=== PATIENT | male | born 1980 | race African-American/Black ===

== ENCOUNTER 2022-12-20 03:10 | Emergency (ER) | payer OTHER, SELFPAY ==
--- NOTE | ~2022-12-20 | CT_ITS ---
EXAMINATION: CT abdomen pelvis w con INDICATION: Epigastric pain TECHNIQUE: Computed tomographic images of the abdomen and pelvis were obtained after the administrati on of 100 cc of Omnipaque 350 intravenous contrast. The dose-length product (DLP) was 552.89 mGy-cm. Automated exposure control and iterative reconstruction technique were employed. COMPARISON: None available FINDINGS: Minimal dependent atelectasis is present in the lung bases. The heart size is normal. The l iver is diffusely low in attenuation when compared with the spleen, consistent with hepatic steatosis . The spleen, gallbladder, and adrenal glands are normal. There is mild inflammatory change near the tail of the pancreas. There is a 1.3 cm cyst of the right kidney. The left kidney is unremarkable. No pathologically enlarged abdominal or pelvic lymph nodes are identified. No free intraperitoneal gas or evidence of bowel obstruction. The appendix is normal. IMPRESSION: 1. Mild acute pancreatitis, likely interstitial edematous. This finding is discrepant from the provid ed overnight preliminary reading and was discussed with Dr. Valentin in the Emergency Department at 074 5 hours on 12/20/2022. Reviewed, dictated and finalized at location A. IMPRESSION: 1. Mild acute pancreatitis, likely interstitial edematous. This finding is disc repant from the provided overnight preliminary reading and was discussed with Navin Valentin in the Emergency Department at 0745 hours on 12/20/2022.
--- NOTE | 2022-12-20 03:15 | ECG_ITS ---
Measurements Intervals [place] Rate: 73 P: 34 NH: 165 QRS: 55 QRSD: 76 T: 14 QT: 380 QTc: 421 Interpretive Statements SINUS RHYTHM NO PREVIOUS ECG AVAILABLE FOR COMPARISON Electronically Signed On 12-20-2022 13:52:21 CDT by Binta Joseph M.D.
[2022-12-20 03:20] VITALS: BP 157/116; PULSE 87; RESP 18; TEMP 36.3; O2SAT 100
[2022-12-20 03:28] VITALS: BP 145/108; PULSE 72; RESP 12; TEMP 36.6; O2SAT 99
--- NOTE | 2022-12-20 03:32 | ED.GENADULT ---
HPI - General Adult General Chief complaint: Abdominal Pain Stated complaint: Abdominal pain Time Seen by Provider: 12/20/22 03:25 History of Present Illness HPI narrative: Patient 42-year-old gentleman who presents the emergency department with chief complaint of epigastric pain. The patient reports he started having pain yesterday reports its in the epigastric region reports it does radiate to the back some patient states that it is an aching-like sensation the patient does not report chest pain reports that he did drink fairly heavily on Saturday patient reports no prior abdominal issues the patient reports he has history of hypertension and asthma. Related Data Allergies Allergy/AdvReac Type Severity Reaction Status Date / Time No Known Allergies Allergy Verified 12/20/22 03:12 Review of Systems Review of Systems: A 10 system review of systems was completed on the patient and is negative except for what is stated in the HPI. Nursing and ancillary documentation was reviewed. Exam Narrative: GENERAL: Well-appearing, well-nourished, and in no acute distress. HEAD: Normocephalic, atraumatic. EYES: PERRLA and EOMI. ENT: Nares clear, no rhinorrhea or epistaxis. Mucous membranes moist. NECK: Supple. CHEST: Clear to auscultation. No respiratory distress. HEART: Regular rate and rhythm. No murmur heard. Normal peripheral pulses. ABDOMEN: Soft, nontender, nondistended, normal active bowel sounds. EXTREMITIES: Normal range of motion. No edema. SKIN: Warm, dry, no rash. NEURO: No focal deficits. Alert and oriented x3. PSYCH: Normal mood and affect. Course Vital Signs Vital signs: Vital Signs Temperature 36.3 C L 12/20/22 03:20 Pulse Rate 87 12/20/22 03:20 Respiratory Rate 18 12/20/22 03:20 Blood Pressure 157/116 H 12/20/22 03:20 Pulse Oximetry 100 12/20/22 03:20 Oxygen Delivery Room Air 12/20/22 03:20 Temperature 36.6 C 12/20/22 03:28 Pulse Rate 75 12/20/22 04:51 Respiratory Rate 14 12/20/22 04:51 Blood Pressure 169/109 H 12/20/22 04:51 Pulse Oximetry 100 12/20/22 04:51 Oxygen Delivery Room Air 12/20/22 03:20 Medical Decision Making MDM Narrative Medical decision making narrative: Differential diagnosis includes pancreatitis, gastritis, cholecystitis, gastroenteritis Laboratory studies were obtained which showed a white count of 9.9 electrolytes are within normal limits troponin was less than 0.012 lipase was 315 urinalysis showed 2+ protein and 3-5 red blood cells trace leukocyte esterase EKG showed sinus rhythm rate of [address] or ST depression CT scan of the abdomen pelvis showed hepatomegaly with hepatic steatosis gallbladder biliary tree pancreas spleen kidneys were unremarkable and no acute abnormality of the GI tract with a normal appendix Patient is feeling better after receiving a dose of Protonix and a dose of pain medication in the emergency department. The patient was instructed that this could be very early pancreatitis and was instructed to do clear liquids for the next 24 hours the patient will be started on Bentyl Zofran and Protonix Vital Signs Vital Signs: Vital Signs Temperature 36.3 C L 12/20/22 03:20 Pulse Rate 87 12/20/22 03:20 Respiratory Rate 18 12/20/22 03:20 Blood Pressure 157/116 H 12/20/22 03:20 Pulse Oximetry 100 12/20/22 03:20 Oxygen Delivery Room Air 12/20/22 03:20 Temperature 36.6 C 12/20/22 03:28 Pulse Rate 75 12/20/22 04:51 Respiratory Rate 14 12/20/22 04:51 Blood Pressure 169/109 H 12/20/22 04:51 Pulse Oximetry 100 12/20/22 04:51 Oxygen Delivery Room Air 12/20/22 03:20 Lab Data 12/20/22 03:41 12/20/22 03:41 Labs: Lab Results 12/20/22 12/20/22 Range/Units 03:41 03:58 WBC 9.9 (4.5-10.0) K/mm3 RBC 5.88 (4.6-6.20) M/mm3 Hgb 16.9 (14.0-18.0) g/dL Hct 50.8 (42.0-52.0) % MCV 86.4 (80-100) fl MCH 28.7 (26-34)
[2022-12-20 03:46] LABS: Basophils Absolute Auto 0.1 K/mm3 (0.0-0.1); Basophils Percent Auto 0.5 % (0.2-1.2); Eosinophils Absolute Auto 0.2 K/mm3 (0-0.3); Eosinophils Percent Auto 1.7 % (0-4.4); Hematocrit 50.8 % (42.0-52.0); Hemoglobin 16.9 g/dL (14.0-18.0); Immature Granulocyte Absolute 0.07 K/mm3 (0.00-0.031); Immature Granulocyte Percent A 0.7 % (0-0.5); Lymphocytes Absolute Auto 2.71 K/mm3 (0.9-3.2); Lymphocytes Percent Auto 27.3 % (18.3-44.2); Mean Corpuscular HGB Conc 33.3 g/dl (32-36); Mean Corpuscular Hemoglobin 28.7 pg (26-34); Mean Corpuscular Volume 86.4 fl (80-100); Mean Platelet Volume 9.6 fl (7.4-10.4); Monocytes Percent Auto 10.5 % (2.6-8.5); Neutrophils Absolute Auto 5.9 K/mm3 (1.3-6.7); Neutrophils Percent Auto 59.3 % (45.5-73.1); Platelet Count Result 210 k/mm3 (150-375); Red Blood Count 5.88 M/mm3 (4.6-6.20); Red Cell Distribution Width 14.5 % (11.5-14.5); White Blood Count 9.9 K/mm3 (4.5-10.0)
[2022-12-20] MEDS: SODIUM CHLORIDE 0.9% IV 1,000 ML 999 ML IV CONT (03:48)
[2022-12-20] MEDS: ONDANSETRON INJ 4 MG/2 ML VIAL IV PUSH (03:50)
[2022-12-20] MEDS: PANTOPRAZOLE SODIUM IV 40 MG VIAL IV PUSH (03:51)
[2022-12-20 03:58] VITALS: BP 157/112; PULSE 70; RESP 13; O2SAT 100
[2022-12-20 03:58] LABS: Alanine Aminotransferase 47 U/L (6-50); Albumin Level 4.4 g/dL (3.5-5.1); Alkaline Phosphatase 96 U/L (38-126); Anion Gap 7 mmol/L (8-16); Aspartate Amino Transferase 38 U/L (17-59); Bilirubin,Total 0.5 mg/dL (0.2-1.3); Blood Urea Nitrogen 8 mg/dL (9-20); Calcium 8.8 mg/dL (8.4-10.2); Carbon Dioxide 28 mmol/L (22-30); Chloride 104 mmol/L (98-107); Estimated CRCL calculation 136 ml/min; Estimated Glomerular Filt Rate > 60; Glucose 109 mg/dL (65-110); Lactic Acid Reflex 1.4 mmol/L (0.7-2.0); Lipase 315 U/L (23-300); Potassium 3.7 mmol/L (3.4-5.0); Sodium 139 mmol/L (137-145)
[2022-12-20 04:08] LABS: Appearance Urine Clear (Clear); Bacteria Urine None Seen /hpf; Bilirubin Urine Negative (Negative); Blood Urine Trace (Negative); Color Urine Yellow (Yellow); Glucose Urine UA Negative (Negative); Ketones Urine Negative (Negative); Leukocyte Esterase Ur Trace LEU/UL (Negative); Nitrate Urine Negative (Negative); Non Pathogenic Casts 0-2; Protein Urine 2+ mg/dL (Negative); Specific Grav Ur 1.014 (1.001-1.035); Squamous Epithelial Cell Urine None seen /hpf (Few); Urobilinogen Urine 0.2 mg/dL (<2.0); pH Urine 6.5 (5.0-9.0)
[2022-12-20 04:09] LABS: Troponin I < 0.012 ng/mL (0.000-0.034)
[2022-12-20 04:18] LABS: Add Urine Microscopic? YES
[2022-12-20] MEDS: MORPHINE SULFATE (*CRX) 4 MG/ML INJ IV PUSH (04:43)
[2022-12-20 04:51] VITALS: BP 169/109; PULSE 75; RESP 14; O2SAT 100
[2022-12-20 06:15] VITALS: BP 160/116; PULSE 83; RESP 12; TEMP 37; O2SAT 100
== END 2022-12-20 06:16 | disposition home or self-care (01) ==
PROVIDERS: Emergency Provider Emergency Medicine; PCP Internal Medicine
DX: K29.70 Gastritis, unspecified, without bleeding (principal)
CPT/HCPCS: 36415; 74177; 80053; 81001; 83605; 83690; 84484; 85025; 87086; 93005; 96361; 96374; 96375; 99284; C9113; J2270; J2405; J7030; Q9967